=== PATIENT | female | born 1980 | race American Indian/Alaskan Native ===

== ENCOUNTER 2017-02-12 11:17 | Emergency (ER) | payer OTHER ==
[2017-02-12 12:00] VITALS: BMI 31.1
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
[2017-02-12 13:02] LABS: BASO # 0.1 K/uL (0.0-0.2); BASO % 0.8 % (0.0-2.0); EOS # 0.1 K/uL (0.0-0.7); EOS % 1.7 % (0.0-4.0); HEMATOCRIT 32.3 % (34.0-47.0); LYMPH # 1.8 K/uL (1.0-4.3); LYMPH % 26.8 % (20.0-40.0); MEAN CELL VOLUME 86.4 fL (81.0-99.0); MEAN CORPUSCULAR HEMOGLOBIN 29.4 pg (27.0-31.0); MONO # 0.7 K/uL (0.0-0.8); MONO % 10.1 % (0.0-10.0); NRBC % 0.1 % (0.0-2.0); RED CELL DISTRIBUTION WIDTH 13.1 % (11.5-14.5); WHITE BLOOD COUNT 6.8 K/uL (4.8-10.8)
[2017-02-12 13:10] LABS: BILIRUBIN,DIRECT 0.4 mg/dL (0.0-0.4); BILIRUBIN,TOTAL 0.4 mg/dL (0.2-1.3); TOTAL PROTEIN 6.6 g/dL (6.3-8.3)
[2017-02-12 13:12] LABS: INR 0.9
[2017-02-12 13:14] LABS: RBC URINE 1 /hpf (0-3); URINE BACTERIA RARE (<OCC); URINE BILIRUBIN NEGATIVE (NEGATIVE); URINE BLOOD NEGATIVE (NEGATIVE); URINE GLUCOSE (UA) NORMAL (Normal); URINE KETONE NEGATIVE (NEGATIVE); URINE LEUKOCYTE ESTERASE NEG Leu/uL (Negative); URINE PROTEIN NEGATIVE (NEGATIVE); URINE UROBILINOGEN NORMAL mg/dL (0.2-1.0); WBC URINE 3 /hpf (0-5)
[2017-02-12 13:18] LABS: URINE COLOR YELLOW (YELLOW)
--- NOTE | 2017-02-12 13:28 | OBDCSUM ---
Datetime: 02/12/2017 13:27 Discharged to, Provider: Home Follow up at, Provider: 1day Disch Instr Activity: Normal activity Disch Instr Diet: Regular Discharge Time: 02/12/2017 13:27 Follow up in weeks, Provider: clinic Disch Referrals: None Discharge Comment, Provider: labor ins given po hyration d/u in clinic 1 day Discharge Diagnosis Prov Other: 37week nst asmita
--- NOTE | 2017-02-12 13:28 | OBHP ---
Datetime: 02/12/2017 13:26 Admit Comment, IP Provider: pt was seen feel ok d home blood work norm bp nor plan labor ins given po hyration d/u in clinic 1 day FHR - Baseline A Provider: 130 NICHD Variability Prov Fetus A: Moderate 6-25bpm NICHD Accel Fetus A IP Provider: [id number] FHR Category Provider Fetus A: Category I Datetime: 02/12/2017 12:16 EGA AdmitDate IP: 37.4
== END 2017-02-12 13:27 | disposition home or self-care (01) ==
LOC: C.EROB 11:17
DX: O26.893 Other specified pregnancy related conditions, third trimester (principal); R20.0 Anesthesia of skin; Z3A.37 37 weeks gestation of pregnancy